=== PATIENT | male | born 1945 | race Caucasian/White ===

== ENCOUNTER 2016-12-18 13:27 | Inpatient (IN) | payer MEDICARE, MEDICAID ==
[~2016-12-18] VITALS: Ht 172.7 cm; Wt 77.1 kg
[2016-12-18 13:46] VITALS: BP 138/75
--- NOTE | 2016-12-18 14:47 | NUR ---
BROUGHT IN BY DAUGHTER DUE TO DIFFICULTY OF SWALLOWING AND SPEAKING X 1 1/2 WEEK AGO, PT WAS IN [facility] X3 DAYS,PT ABLE TO AMBULATE FROM LOBBY TO BED, PT AAO, WITH GARBLED, SLURRED SPEECH,ABLE TO SQUEEZE MY HANDS WITH HIS BOTH HANDS, DENIES N/V/D; SKIN IS PINK/WARM/DRY; AAOX4 WITH EVEN AND STEADY GAIT; LUNGS CLEAR BL; HR EVEN AND REGULAR; PT DENIES ANY FEVER, CP, OR COUGH AT THIS TIME; PATIENT STATES PAIN OF 0/10 AT THIS TIME; PATIENT POSITIONED FOR COMFORT; HOB ELEVATED; BEDRAILS UP X2; BED DOWN.
--- NOTE | 2016-12-18 14:47 | NUR ---
DR. ROBIN AT BEDSIDE
[2016-12-18] MEDS ORDERED: IPRATROPIUM 0.02% 0.5 MG/2.5 ML NEBU INH ONE (14:55)
[2016-12-18] MEDS ORDERED: ALBUTEROL 0.083% 2.5 MG/3 ML NEBU INH ONE (14:55)
--- NOTE | 2016-12-18 15:17 | NUR ---
XRAY AT BEDSIDE
--- NOTE | 2016-12-18 15:17 | NUR ---
RT AT BEDSIDE FOR HHN
[2016-12-18] MEDS ORDERED: cefTRIAXone 1,000 MG VIAL ONE (16:04)
[2016-12-18] MEDS ORDERED: POTASSIUM CHL 20 MEQ/NACL 0.9% 1,000 ML IV ONE (16:10)
--- NOTE | 2016-12-18 16:36 | NUR ---
PT AAO, VITAL SIGN STABLE IVF ONGOING WELL TOLERATED, STILL WITH GARBLED, SLURRED SPEECH, NO SOB NOTED
--- NOTE | 2016-12-18 17:26 | NUR ---
PER DAUGHTER SHE WILL BRING THE LIST OF MEDICATION TOMORROW, PT AAO, NO C/O PAIN,IVF ONGOING WELL TOLERATED.
--- NOTE | 2016-12-18 17:35 | NUR ---
REPORT GIVEN TO INDIO
--- NOTE | 2016-12-18 17:38 | NUR ---
TRANSFER TO [facility] VIA [facility], ASSIDTED BY RN/EMT WITH DAUGHTER, PT AAO,NO C/O PAIN, STILL WITH GARBLED SPEECH.
[2016-12-18 18:03] VITALS: BP 148/75
--- NOTE | 2016-12-18 18:03 | NUR ---
PT ON UNIT. NO S/S OF ACUTE DISTRESS. PT DENIES PAIN. IV SITE PATENT AND INTACT. PT ORIENTED TO ROOM. ON O2 2L NC. DAUGHTER AT BEDSIDE. ABRASIONS TO LEFT ELBOW AND LOWER LEG NOTED. RIGHT SIDED FACIAL DROOP NOTED. CALL LIGHT WITHIN REACH. SAFETY MEASURES ENSURED. WILL CONTINUE TO MONITOR.
[2016-12-18] MEDS ORDERED: DOCUSATE SODIUM 100 MG GELCAP PO PRN (18:45)
[2016-12-18] MEDS ORDERED: MORPHINE SULFATE 2 MG/ML SYR IVP PRN (18:45)
[2016-12-18] MEDS ORDERED: ACETAMINOPHEN 325 MG TAB PO PRN (18:45)
[2016-12-18] MEDS ORDERED: ONDANSETRON 4 MG/2 ML VIAL IVP PRN (18:45)
--- NOTE | 2016-12-18 19:11 | NUR ---
ENDORSED PLAN OF CARE TO NIGHT RN. PT REMAINS IN STABLE CONDITION
--- NOTE | 2016-12-18 19:15 | NUR ---
RECEIVED REPORT FROM DAY RN AT BEDSIDE, PATIENT IS AAOX4, PATIENT HAS NOTABLE DYSPHAGIA. PATIENT CAN TALK, BUT NOT EASILY UNDERSTANDABLE. PATIENT HAS RIGHT SIDE FACIAL DROOP NOTED. PATIENT STRENGTH TO PATIENTS EXTREMITIES GOOD WITH RIGHT ARM HAVING MILD WEAKNESS. PATIENT ABLE TO AMBULATE. PATIENT IS ON O2 @2L NC WITH NO SOB AT THIS TIME. PATIENT HAS IV TO RFA#20 PATENT AND INTACT WITH IVF INFUSING WELL. PATIENT HAS SCABBED ABRASIONS TO LEFT ELBOW AND LEFT LEG, INTACT. DISCUSSED PLAN OF CARE WITH PATIENT, PATIENT VERBALIZED UNDERSTANDING. CALL LIGHT WITHIN REACH. WILL CONTINUE TO MONITOR.
[2016-12-18] MEDS ORDERED: CLINDAMYCIN 300 MG in DEXTROSE 5% 50 ML IV SCH (20:00)
[2016-12-18] MEDS ORDERED: LEVOFLOXACIN 750 MG/D5W PREMIX 150 ML IV SCH (20:00)
[2016-12-18] MEDS ORDERED: MAG SULF 2000 MG/WATER PREMIX 50 ML IV ONE (20:40)
[2016-12-18] MEDS: SACCHAROMYCES 250 MG CAP PO SCH (20:44)
--- NOTE | 2016-12-18 21:08 | NUR ---
PATIENT SLEEPING COMFORTABLE IN BED, NO SOB OR SIGN OF DISTRESS, CALL LIGHT WITHIN REACH. WILL CONTINUE TO MONITOR.
--- NOTE | 2016-12-18 23:30 | NUR ---
PATIENT RESTING IN BED, NO SOB OR SIGN OF DISTRESS, CALL LIGHT WITHIN REACH. WILL CONTINUE TO MONITOR.
[2016-12-19] VITALS: BP 149/80
[2016-12-19] MEDS ORDERED: CLINDAMYCIN 600 MG/4 ML VIAL ONE ×2 (00:11→05:34)
[2016-12-19] MEDS: CLINDAMYCIN 300 MG in DEXTROSE 5% 50 ML IV SCH ×5 (00:13→23:11)
--- NOTE | 2016-12-19 00:30 | NUR ---
PATIENT SLEEPING, NO SOB OR SIGN OF DISTRESS, CALL LIGHT WITHIN REACH. WILL CONTINUE TO MONITOR.
[2016-12-19] MEDS ORDERED: MAG SULF 2000 MG/WATER PREMIX 50 ML IV ONE (01:36)
--- NOTE | 2016-12-19 02:30 | NUR ---
PATIENT SLEEPING, NO SIGN OF DISTRESS, CALL LIGHT WITHIN REACH. WILL CONTINUE TO MONITOR.
[2016-12-19 04:00] VITALS: BP 140/72
--- NOTE | 2016-12-19 04:59 | NUR ---
VITAL SIGNS STABLE, PATIENT RESTING IN BED, PATIENT STATES HE IS OKAY AND DOESNT NEED ANYTHING, CALL LIGHT WITHIN REACH, WILL CONTINUE TO MONITOR.
--- NOTE | 2016-12-19 06:50 | NUR ---
CHECKED PATIENT'S BLOOD SUGAR, PATIENT HAS HISTORY OF DM AND STATED HE CHECKS IT AT HOME. BS WAS 139. NO INSULIN NEEDED, CALL LIGHT WITHIN REACH, WILL CONTINUE TO MONITOR.
--- NOTE | 2016-12-19 07:27 | NUR ---
PATIENT HAS BEEN SCREENED AND CATEGORIZED HIGH NUTRITION RISK. PATIENT WILL BE SEEN WITHIN 1-2 DAYS OF ADMISSION. 12/19/16-12/20/16 ABBY GONZÁLES MS, RDN
--- NOTE | 2016-12-19 07:31 | NUR ---
ENDORSED PATIENT TO DAY RN AT BEDSIDE, PATIENT IN STABLE CONDITION.
--- NOTE | 2016-12-19 07:32 | NUR ---
RECEIVED REPORT FROM KATERINE MINA. PT IS AAOX4. PT ON 2L NC, O2 SAT AT 94%. IV TO RIGHT FA #20, PATENT AND INTACT. SCAB TO LEFT ELBOW AND ANKLE NOTED. NO N/V OR PAIN INDICATED. ALL SAFETY PRECAUTIONS IN PLACE, SIDE RAILSX2, BED IN LOW POSITION, AND CALL LIGHT WITHIN REACH. WILL CONTINUE TO MONITOR.
[2016-12-19 08:00] VITALS: BP 144/76
[2016-12-19] MEDS: SACCHAROMYCES 250 MG CAP PO SCH ×2 (08:50→21:00)
--- NOTE | 2016-12-19 08:50 | NUR ---
HELD PT MEDS. PT DX: DYSPHAGIA. SPEECH THERAPIST CONSULTATION NOT IN TO SEE PT AT THIS TIME.
--- NOTE | 2016-12-19 09:45 | NUR ---
IV TO RIGHT FA #20 DISLODGED WITH CANNULA INTACT. NEW IV STARTED TO RIGHT WRIST #22, PATENT AND INTACT.
--- NOTE | 2016-12-19 09:51 | NUR ---
TALKED TO DR Swartz NOTIFIED , PT IS DIABETIC WITH NO ACCUCHECKS, AND IS NPO WITHOUT IV FLUIDS. MD TO FOLLOW UP.
--- NOTE | 2016-12-19 09:56 | NUR ---
TALKED TO ANNABELLE CHARGE NURSE. SPEECH THERAPIST TO COME IN TODAY. Addendum: 12/19/16 at 1546 by Whitney Jimenez RN CORRECTION: SPEECH THERAPIST POSSIBLY TO COME IN TODAY.
[2016-12-19] MEDS: DEXT 5% /NACL 0.9% 1,000 ML IV SCH ×2 (11:07→20:45)
--- NOTE | 2016-12-19 11:11 | NUR ---
PT TOLERATED IV FLUIDS WELL.
[2016-12-19 12:00] VITALS: BP 150/81
--- NOTE | 2016-12-19 12:38 | NUR ---
PT TOLERATED MEDS WELL. WILL CONTINUE TO MONITOR.
--- NOTE | 2016-12-19 14:00 | NUR ---
PT SLEEPING WITH NO DISTRESS NOTED AT THIS TIME.
[2016-12-19] MEDS: BLOOD GLUCOSE MONITORING 1 DEV DEV FS SCH ×2 (15:42→20:43)
--- NOTE | 2016-12-19 15:45 | NUR ---
BLOOD GLUCOSE 199, WILL ADMINISTER INSULIN ORDERED.
[2016-12-19 16:00] VITALS: BP 154/76
[2016-12-19] MEDS ORDERED: METFORMIN HCL850 MG PO (16:37)
[2016-12-19] MEDS ORDERED: METOPROLOL TART25 MG PO (16:37)
[2016-12-19] MEDS ORDERED: LOSARTAN POTASS50 MG PO (16:37)
[2016-12-19] MEDS ORDERED: GLIPIZIDE5 M2 PO (16:37)
[2016-12-19] MEDS ORDERED: ATORVASTATIN CA10 MG PO (16:37)
[2016-12-19] MEDS ORDERED: JANUVIA100 MG PO (16:37)
--- NOTE | 2016-12-19 16:40 | NUR ---
HOME MEDICATIONS ADDED TO RECONCILE MEDS, DR Mckeon MADE AWARE.
[2016-12-19] MEDS: INSULIN ASPART SLIDING SCALE 100 UNITS/ML VIAL SUBQ PRN ×2 (16:50→20:42)
--- NOTE | 2016-12-19 16:51 | NUR ---
BLOOD GLUCOSE 199, ADMINISTERED 2 UNITS OF INSULIN ORDERED.
--- NOTE | 2016-12-19 17:08 | NUR ---
PT TOLERATED MEDS WELL. WILL CONTINUE TO MONITOR.
--- NOTE | 2016-12-19 18:06 | NUR ---
PT SLEEPING, NO DISTRESS NOTED AT THIS TIME.
--- NOTE | 2016-12-19 19:20 | NUR ---
RECEIVED REPORT FROM KATERINE Ramos AT BEDSIDE. INITIAL ASSESSMENT COMPLETED. PT AAOX4. PT HAS IV TO RIGHT WRIST G 22; ASYMPTOMATIC, PATENT AND INTACT. PT HAS 02 2L NC. PT HAS SCDS ON. PT HAS SOME DRY SCABS ON LEFT ANKLE AND LEFT ELBOW. ORIENTED PT TO ROOM AND SURROUNDINGS AND USE OF CALL LIGHT. EXPLAINED PLAN OF CARE TO PT AND HE VERBALIZES UNDERSTANDING. PT AWARE THAT HE IS NPO UNTIL SWALLOWING EVALUATION IS DONE. WILL CONTINUE TO MONITOR PT. Addendum: 12/19/16 at 2228 by Lorri Magaña RN PT MUMBLES WHEN HE SPEAKS DUE TO THE STROKE HE HAD A WEEK AGO.
--- NOTE | 2016-12-19 19:22 | NUR ---
ENDORSED CARE TO KATERINE FRANKS. PT IN STABLE CONDITION.
[2016-12-19 20:00] VITALS: BP 145/82
[2016-12-19] MEDS: LEVOFLOXACIN 750 MG/D5W PREMIX 150 ML IV SCH (20:16)
--- NOTE | 2016-12-19 20:40 | NUR ---
2000 ANTIBIOTIC INFUSING NOW. CALL LIGHT WITHIN REACH.
[2016-12-19] MEDS ORDERED: LOSARTAN 25 MG TAB PO SCH (21:00)
[2016-12-19] MEDS: glipiZIDE 5 MG TAB PO SCH (21:00)
[2016-12-19] MEDS: METOPROLOL 25 MG TAB PO SCH (21:00)
--- NOTE | 2016-12-19 21:42 | NUR ---
HELD 2100 PO MEDS DUE TO PT BEEN NPO FOR SWALLOWING EVALUATION. WILL CONTINUE TO MONITOR PT.
--- NOTE | 2016-12-19 23:13 | NUR ---
0000 CLEOCIN INFUSING AT THIS TIME. CALL LIGHT WITHIN REACH.
[2016-12-20] VITALS: BP 141/80
[2016-12-20] MEDS: DEXT 5% /NACL 0.9% 1,000 ML IV SCH ×2 (01:30→11:13)
--- NOTE | 2016-12-20 02:11 | NUR ---
PT AWAKE AT THIS TIME. I ASKED HIM IF HE WAS ON PAIN OR NEEDED ANYTHING. PT STATED THAT HE WAS OK BY WRITING ON PAPER. WILL CONTINUE TO MONITOR PT.
[2016-12-20 04:00] VITALS: BP 148/82
--- NOTE | 2016-12-20 04:35 | NUR ---
PT SLEEPING, NO SIGNS OF DISTRESS NOTED. CALL LIGHT WITHIN REACH, WILL CONTINUE TO MONITOR PT.
[2016-12-20] MEDS: CLINDAMYCIN 300 MG in DEXTROSE 5% 50 ML IV SCH ×4 (05:24→23:14)
--- NOTE | 2016-12-20 05:27 | NUR ---
PT ACCIDENTALLY PULLED OUT IV, TIP INTACT. NEW IV STARTED ON RIGHT FOREARM G 20; ASYMPTOMATIC, PATENT AND INTACT. PT TOLERATED IT WELL.
--- NOTE | 2016-12-20 05:29 | NUR ---
0600 CLEOCIN INFUSING NOW. PT STABLE CALL LIGHT WITHIN REACH.
[2016-12-20] MEDS: INSULIN ASPART SLIDING SCALE 100 UNITS/ML VIAL SUBQ PRN ×4 (05:48→20:28)
[2016-12-20] MEDS: BLOOD GLUCOSE MONITORING 1 DEV DEV FS SCH ×4 (06:32→20:28)
--- NOTE | 2016-12-20 07:05 | NUR ---
ENDORSED PT IN STABLE CONDITION TO KATERINE Ramos FOR CONTINUITY OF CARE.
--- NOTE | 2016-12-20 07:06 | NUR ---
RECEIVED REPORT FROM KATERINE FRANKS.PT IS AAOX4. PT ON 2L NC O2 SAT 97%. IV TO RIGHT FA #20, PATENT AND INTACT. LEFT ELBOW AND LEFT ANKLE ABRASION. NO N/V OR PAIN INDICATED. ALL SAFETY PRECAUTIONS IN PLACE, SIDE RAILSX2, AND CALL LIGHT WITHIN REACH. WILL CONTINUE TO MONITOR.
[2016-12-20 08:00] VITALS: BP 156/86
[2016-12-20] MEDS: SACCHAROMYCES 250 MG CAP PO SCH ×2 (08:51→20:15)
[2016-12-20] MEDS: METOPROLOL 25 MG TAB PO SCH ×2 (08:51→20:15)
[2016-12-20] MEDS: metFORMIN 850 MG TAB PO SCH ×3 (08:51→16:27)
[2016-12-20] MEDS: glipiZIDE 5 MG TAB PO SCH ×2 (08:51→20:14)
[2016-12-20] MEDS: LOSARTAN 50 MG TAB PO SCH (08:51)
--- NOTE | 2016-12-20 08:52 | NUR ---
HELD PO MEDS. SPEECH THERAPIST TO POSSIBLY SEE PT TODAY. PER MD ORDER PT TO REMAIN NPO UNTIL SWALLOW EVALUATIONS IN COMPLETE.
--- NOTE | 2016-12-20 10:37 | NUR ---
PT SLEEPING WITH NO DISTRESS NOTED.
--- NOTE | 2016-12-20 10:48 | NUR ---
SPEECH THERAPIST TO COME TODAY BEFORE 1300.
--- NOTE | 2016-12-20 11:18 | NUR ---
PT TOLERATED MEDS WELL. NOTIFIED DR Mckeon PT ELEVATED BP 167/87, HR 85, LOW POTASSIUM 3.3, AND MAGNESIUM AT 1.7. MD TO FOLLOW UP WITH ORDERS.
[2016-12-20] MEDS ORDERED: hydrALAZINE 20 MG/ML VIAL IVP PRN (11:25)
[2016-12-20 12:00] VITALS: BP 167/86
[2016-12-20] MEDS ORDERED: POTASSIUM CHLORIDE 40 MEQ, LIDOCAINE 1% 25 MG in NACL 0.9% 250 ML IV SCH (12:00)
--- NOTE | 2016-12-20 12:07 | NUR ---
PT TOLERATED MEDS WELL. BLOOD GLUCOSE 203, ADMINISTERED 4 UNITS ORDERED.
--- NOTE | 2016-12-20 12:24 | NUR ---
ADMINISTERED HYDRALAZINE IVP ORDERED. BP 171/88, HR 85. WILL CONTINUE TO MONITOR.
--- NOTE | 2016-12-20 13:50 | NUR ---
SPEECH THERAPIST IN TO SEE PT. OK FOR PT TO HAVE PUREED FOODS WITH NO LIQUIDS. CLOSE SUPERVISION REQUIRED, RD AND SPEECH THERAPIST TO FOLLOW UP.
--- NOTE | 2016-12-20 14:28 | NUR ---
* ST NOTE * Bedside Dysphagia and Oral Mechanism exams completed at pt's bedside with pt's nurse present. Pt tolerating 8/8 alternating PO trials of puree apple sauce 3-5 CCs at a time via a teaspoon w/out s/s of aspiration. Pt however exhibiting consistent throat clearing immediately after PO intake of honey-thickened apple juice 3-5 CCs at a time via a teaspoon. Pt also exhibiting delayed residual cough after PO intake of honey-thickened apple juice 3-5 CCs at a time via a teaspoon as well. Pt education completed regarding clinician's recommendation for an RD consult for alternative means of nutrition secondary to pt currently being deemed unsafe for PO intake of liquids at this time, with pt unwilling to wait for RD consult secondary to pt preferring to discharge home tonight. Pt education completed regarding risks of dehydration and aspiration PNA if pt was to D/C today without ST follow up treatment as well as without RD consultation. Clinician also electing to recommend video fluoroscopic swallow study to provide more comprehensive assessment of pt's swallow function, but pt refusing to remain at hospital overnight to be transferred to another acute care hospital for swallow study, despite maximal cueing and education provided by clinician. Lastly, pt education completed regarding potential placement of NG tube to assure pt receives proper nutrition & hydration with home health ST follow up or outpatient ST follow up, with pt initially refusing tube feeding at this time, but later inquiring as to what POC would be if NGT was placed and what pt's prognosis would be. Pt and caregiver/nursing education completed regarding pt's multiple options and multiple subsequent POCs respective of what options pt chooses as well as pending MD approval, with pt and caregiver/nursing agreeable with and verbalizing understanding of clinician's recommendations. Pt and caregiver/nurse education completed regarding results of evaluation; benefits of abiding by recommended PO diet consistency and aspiration precuations; risks of leaving AMA despite clinician's recommendations for RD consult as well as ST follow up treatment; and prognosis for improvement; with pt requiring additional education and encouragement to comply with clinician's recommendations secondary to pt adamant regarding wanting to go home today. Caregiver/nurse agreeable with and verbalizing understanding of clinician's recommendations. Caregiver/nurse aware of pt requiring more education to comply with clinician's recommendations. Recommend: - PO diet consistency of Puree textures only - if pt exhibits s/s of aspiration during PO intake of puree textures, stop PO intake and attempt at a later time - Suction PRN - NO liquids PO - Close supervision during PO intake to assure aspiration precautions are in place secondary to pt being at high risk for aspiration - RD consult for alternative means of nutrition such as NG tube secondary to pt being at high risk for aspiration with PO intake ST to follow up x1-2 in next 1-2 days. G8996 CL G8997 CK NOMS Level 4 Time In/Out 13:10 - 13:55
--- NOTE | 2016-12-20 14:34 | NUR ---
PT RESTING WITH NO DISTRESS NOTED.
--- NOTE | 2016-12-20 14:35 | NUR ---
TALKED TO DR Linda MD AWARE OF PT'S SWALLOW EVAL RESULTS. MD TO PLACE ORDERS. OK WITH MD IF MEDICATIONS ARE CRUSHED AND MIXED WITH APPLE SAUCE TO AVOID ASPIRATION.
[2016-12-20 16:00] VITALS: BP 144/71
--- NOTE | 2016-12-20 16:34 | NUR ---
PT TOLERATED MEDS WELL. ADMINISTERED METFORMIN WITH APPLESAUCE, PT TOLERATED WELL. WILL CONTINUE TO MONITOR.
[2016-12-20] MEDS ORDERED: MAG SULF 2000 MG/WATER PREMIX 50 ML IV SCH (17:00)
--- NOTE | 2016-12-20 17:16 | NUR ---
BLOOD GLUCOSE 160, ADMINISTERED 2 UNITS OF INSULIN ORDERED.
--- NOTE | 2016-12-20 17:42 | NUR ---
PT EATING DINNER. PT TOLERATING WELL. WILL CONTINUE TO MONITOR.
--- NOTE | 2016-12-20 18:33 | NUR ---
PT TOLERATED MEDS WELL. WILL CONTINUE TO MONITOR.
--- NOTE | 2016-12-20 19:04 | NUR ---
ENDORSED CARE TO KATERINE FRANKS. PT IN STABLE CONDITION.
--- NOTE | 2016-12-20 19:15 | NUR ---
RECEIVED REPORT FROM KATERINE Ramos AT BEDSIDE. INITIAL ASSESSMENT COMPLETED. PT AAOX4. PT HAS IV TO RIGHT FOREARM G 22; ASYMPTOMATIC, PATENT AND INTACT. PT HAS 02 2L NC. PT HAS SCDS ON. PT HAS SOME DRY SCABS ON LEFT ANKLE AND LEFT ELBOW. ORIENTED PT TO ROOM AND SURROUNDINGS AND USE OF CALL LIGHT. EXPLAINED PLAN OF CARE TO PT AND HE VERBALIZES UNDERSTANDING. PT IS ON A PUREE DIET. PT HAS RIGHT DROOPING ON RIGHT SIDE OF FACE DUE TO STROKE A WEEK AGO. SAFETY MEASURES IN PLACE, WILL CONTINUE TO MONITOR PT.
[2016-12-20 20:00] VITALS: BP 115/88
[2016-12-20] MEDS: LEVOFLOXACIN 750 MG/D5W PREMIX 150 ML IV SCH (20:14)
--- NOTE | 2016-12-20 20:24 | NUR ---
PT TOLERATED 2100 MEDS WELL. PO MEDS CRASHED AND GIVEN WITH APPLE SAUCE. VS WITHIN NORMAL RANGE. WILL CONTINUE TO MONITOR PT.
--- NOTE | 2016-12-20 22:45 | NUR ---
PT STABLE, DENIES PAIN OR DISCOMFORT. PT HAS SCDS ON. CALL LIGHT WITHIN REACH, WILL CONTINUE TO MONITOR PT.
--- NOTE | 2016-12-20 23:19 | NUR ---
0000 CLEOCIN INFUSING NOW. PT STABLE, CALL LIGHT WITHIN REACH.
[2016-12-21] VITALS: BP 143/81
--- NOTE | 2016-12-21 01:32 | NUR ---
PT STABLE, VS STABLE. PT LIPS ARE DRY, ORAL CARE GIVEN. PT STATES THAT HE HAS TROUBLE FALLING ASLEEP. ASKED PT IF HE WANTED ME TO NOTIFY MD BUT PT SAID "NO, IT'S OK". CALL LIGHT WITHIN REACH.
[2016-12-21] MEDS: DEXT 5% /NACL 0.9% 1,000 ML IV SCH (02:45)
--- NOTE | 2016-12-21 03:38 | NUR ---
PT ACCIDENTLY PULLED OUT HIS IV; THERE WAS BLOOD ON THE SHEETS AND ON THE FLOOR. CHANGED THE BED LINEN, PT'S GOWN AND CLEANED BLOOD ON THE FLOOR. PT DENIES PAIN OR DISCOMFORT. WILL CONTINUE TO MONITOR PT.
[2016-12-21 04:00] VITALS: BP 123/85
--- NOTE | 2016-12-21 05:20 | NUR ---
IV PUMP ALARMING, CHECKED ON PT FLUSHED IV. IV FLUIDS INFUSING WELL. PT STABLE, CALL LIGHT WITHIN REACH.
[2016-12-21] MEDS: CLINDAMYCIN 300 MG in DEXTROSE 5% 50 ML IV SCH ×3 (05:31→17:08)
--- NOTE | 2016-12-21 07:10 | NUR ---
ENDORSED PT IN STABLE CONDITION TO KATERINE VILA FOR CONTINUITY OF CARE.
--- NOTE | 2016-12-21 07:11 | NUR ---
RECEIVED REPORT FROM THE EXCEPTIONAL CHILDREN TEACHER ASSISTANT NURSE TINY AT BEDSIDE FOR CONTINUITY OF CARE. PATIENT IS AWAKE, ALERT, AND ORIENTEDX4. NO SIGN OF SOB OR RESPIRATORY DISTRESS NOTED AT THIS TIME, INITIAL ASSESSMENT DONE, PATIENT HAS SCABS TO LEFT ELBOW AND MULTIPLE SCABS AND DRY HEALED WOUNDS TO BLE. PATIENT DENIED ANY PAIN OR DISCOMFORT. NOTED PATIENT HAS SLURRING VOICE DUE TO HX OF STROKE. PATIENT ALSO HAS IV TO RIGHT FA 22G, ASYMPTOMATIC, PATENT AND INTACT. VITALS TAKEN AND WITHIN THE NORMAL LIMIT. PLAN OF CARE AND MEDICATION REGIMENTS DISCUSSED, PATIENT VERBALIZED UNDERSTANDING. SAFETY MEASURED CHECKED AND WILL CONTINUE TO MONITOR. CALL LIGHT WITHIN REACH.
[2016-12-21 08:00] VITALS: BP 159/93
[2016-12-21] MEDS: BLOOD GLUCOSE MONITORING 1 DEV DEV FS SCH ×4 (08:04→21:31)
[2016-12-21] MEDS: metFORMIN 850 MG TAB PO SCH ×3 (08:10→16:58)
[2016-12-21] MEDS: LOSARTAN 50 MG TAB PO SCH (08:11)
[2016-12-21] MEDS: SACCHAROMYCES 250 MG CAP PO SCH ×2 (08:11→21:18)
[2016-12-21] MEDS: METOPROLOL 25 MG TAB PO SCH ×2 (08:11→21:18)
[2016-12-21] MEDS: glipiZIDE 5 MG TAB PO SCH ×2 (08:11→21:18)
--- NOTE | 2016-12-21 08:14 | NUR ---
MORNING DUE MEDICATIONS CRUSHED IN PUDDING GIVEN, PATIENT TOLERATED AND SWALLOW WELL. NO SIGN OF DISTRESS NOTED. PATIENT ANY PAIN OR DISCOMFORT. ALL NEEDS ARE MET. PATIENT REMAINED CALMED AND WATCHING TV. WILL CONTINUE TO MONITOR.
[2016-12-21] MEDS: NACL 0.9% 1,000 ML IV SCH (08:30)
[2016-12-21] MEDS ORDERED: ECOTRIN 81 MG TABEC PO SCH (09:00)
[2016-12-21] MEDS: ATORVASTATIN 20 MG TAB PO SCH (09:34)
--- NOTE | 2016-12-21 10:57 | NUR ---
PATIENT REMAINED CALM AWAKE AND RESTING WELL IN BED WATCHING TV. NO SIGN OF SOB OR RESPIRATORY DISTRESS NOTED AT THIS TIME. DENIED ANY PAIN OR DISCOMFORT. ALL NEEDS MET. CALL LIGHT WITHIN REACH. WILL CONTINUE TO MONITOR.
[2016-12-21 11:28] VITALS: BP 155/72
[2016-12-21] MEDS: INSULIN ASPART SLIDING SCALE 100 UNITS/ML VIAL SUBQ PRN ×2 (12:02→21:34)
--- NOTE | 2016-12-21 12:08 | NUR ---
DUE MEDICATION PO CRUSHED IN APPLE SAUCE AND INSULIN 4UNITS GIVEN FOR BS 205. PATIENT TOLERATED WELL. NO SIGN OF DISTRESS NOTED. PATIENT RESTING WELL IN BED. DENIED ANY DISCOMFORT. CALL LIGHT WITHIN REACH. WILL CONTINUE TO MONITOR.
[2016-12-21] MEDS ORDERED: ALBUTEROL SULFATE/IPRATROPIU 3 ML SOL IH PRN (13:20)
--- NOTE | 2016-12-21 14:00 | NUR ---
12/21/16 RD INITIAL ASSESSMENT COMPLETED PLEASE REFER TO NUTRITION ASSESSMENT UNDER CARE ACTIVITY FOR ESTIMATED NUTRITIONAL NEEDS. RD RECOMMENDATIONS: 1. CONTINUE PUREE DIET WITH NO LIQUIDS TOLERATED PER MD 2. RECOMMEND ADDING CARDIAC TO CURRENT DIET D/T PT PMH OF CVA, HTN, HYPERLIPIDEMIA 3. RD WILL F/U 2-3 DAYS; HIGH RISK. ALVINO CHAMBERLAIN RD
--- NOTE | 2016-12-21 14:09 | NUR ---
RESEARCH ELECTRICIAN note (dysphagia therapy provided) [id number] S: Pt was provided with dysphagia therapy following clearance by KATERINE (Magdiel). Pt was lying in bed sleeping upon RESEARCH ELECTRICIAN's entrance to pt's room, but pt awakened easily with quiet verbal cues and knock on pt's room door. Pt sat himself up on edge of bed (with suggestion by RESEARCH ELECTRICIAN) for therapy session and then returned himself back into bed at end of session. O/A: RESEARCH ELECTRICIAN provided education to pt regarding purpose of dysphagia therapy session. Pt verbalized understanding and willingness to participate. Pt self-fed all PO trials of thin liquids by spoon, nectar-thick liquids by spoon, and honey-thick liquids by spoon during session. Pt demonstrated wet/gurgly vocal quality and prolonged coughing with all PO trials at this time, despite small/slow PO intakes and despite chin down posture. Pt required additional cues to cough hard to fully clear vocal quality back to baseline. RESEARCH ELECTRICIAN provided pt with education regarding risks for aspiration/PNA with liquid PO intakes and importance of strict compliance with recommendations. Pt verbalized understanding and agreement. RESEARCH ELECTRICIAN provided pt with education regarding importance of following up with outpatient RESEARCH ELECTRICIAN intervention upon discharge to assist pt in improving his swallowing safety. Pt verbalized understanding and agreement. P: Pt to be discharged home today. Discharge pt from RESEARCH ELECTRICIAN intervention here at [facility]. Pt to follow up with outpatient RESEARCH ELECTRICIAN intervention for dysphagia upon discharge. Pt verbalized understanding and agreement with recommendations at this time. PVE: RESEARCH ELECTRICIAN d/w KATERINE (Magdiel) following dysphagia therapy session.
--- NOTE | 2016-12-21 14:25 | NUR ---
EMERGENCY PLANNING AND RESPONSE MANAGER Discharge Summary Report S: Pt was provided with bedside swallow evaluation on 12/20/2016. Pt was provided with dysphagia therapy on 12/21/2016. O/A: Per bedside swallow evaluation: pt was recommended for pureed textures, no liquids, dysphagia therapy 1-2 x for 1-2 days. Per dysphagia therapy: pt to continue pureed textures, no liquids, and pt to f/u with outpatient EMERGENCY PLANNING AND RESPONSE MANAGER intervention upon discharge home from [facility]. Pt was provided with education regarding risks for aspiration/PNA and importance of following up with outpatient EMERGENCY PLANNING AND RESPONSE MANAGER intervention. Pt verbalized agreement and understanding. P: Discharge pt from EMERGENCY PLANNING AND RESPONSE MANAGER intervention here at [facility]. Pt to f/u with outpatient EMERGENCY PLANNING AND RESPONSE MANAGER intervention upon discharge home from [facility]. EMERGENCY PLANNING AND RESPONSE MANAGER d/w RN (Magdiel). [id number] EMMA NOMS level 3.
--- NOTE | 2016-12-21 14:54 | NUR ---
CM NOTE INITIAL REVIEW FAXED TO [employer] (FAX# [phone], C: [phone]) AND [facility] (FAX# [phone], C: [phone], OPT. 1)
--- NOTE | 2016-12-21 15:58 | NUR ---
CM NOTE BETTY W/ TANGELA HEIN FOR [facility] RE. [place] FOR SNF OR [facility] FOR SPEECH THERAPY.
[2016-12-21 16:00] VITALS: BP 149/85
--- NOTE | 2016-12-21 19:15 | NUR ---
ENDORSED PATIENT CURRENT PLAN OF CARE TO NIGHT NURSE RAE GARCIAS, PATIENT RESTING WELL IN BED WITH NO SIGN OF DISTRESS NOTED.
--- NOTE | 2016-12-21 19:16 | NUR ---
RECEIVED REPORT FROM DAYSHIFT RN FOR CONTINUITY OF CARE. PATIENT IS A&OX4, EXPLAINED PLAN OF CARE TO PATIENT. SHIFT ASSESSMENT DONE, VS TAKEN, STABLE AT THIS TIME. PATIENT HAS NO S/S OF RESPIRATORY DISTRESS NOTED ON ROOM AIR, O2 SAT 98%. PATIENT DENIES PAIN. IV TO RT FA 22 GAUGE PATENT AND INFUSING FLUIDS WELL. PT HAS OLD SCABS TO BLE. SAFETY/FALL/ ASPIRATION PRECAUTIONS ENFORCED. CALL LIGHT WITHIN REACH. WILL CONTINUE TO MONITOR.
[2016-12-21 20:00] VITALS: BP 132/75
[2016-12-21] MEDS: LEVOFLOXACIN 750 MG/D5W PREMIX 150 ML IV SCH (21:18)
--- NOTE | 2016-12-21 21:34 | NUR ---
DUE MEDICATIONS CRUSHED AND GIVEN IN APPLE SAUCE, TOLERATED WELL. BLOOD SUGAR 170, INSULIN ADMINISTERED PER MD ORDER. PATIENT AMBULATED TO RESTROOM, VOIDED. CALL LIGHT WITHIN REACH.
--- NOTE | 2016-12-21 23:02 | NUR ---
PT IS SLEEPING. NO S/S OF RESPIRATORY DISTRESS NOTED. CALL LIGHT IN REACH.
[2016-12-22] VITALS: BP 132/59
[2016-12-22] MEDS: CLINDAMYCIN 300 MG in DEXTROSE 5% 50 ML IV SCH ×3 (00:52→11:49)
--- NOTE | 2016-12-22 00:52 | NUR ---
VS TAKEN, STABLE. DUE ANTIBIOTICS ADMINISTERED, TOLERATED WELL. PATIENT IS NOW SLEEPING. CALL LIGHT WITHIN REACH.
--- NOTE | 2016-12-22 02:54 | NUR ---
PT IS SLEEPING. NO S/S OF DISTRESS OR DISCOMFORT NOTED.
[2016-12-22 04:00] VITALS: BP 118/66
--- NOTE | 2016-12-22 04:36 | NUR ---
VS TAKEN, STABLE. PT AWAKE, PROVIDED ORAL CARE AND RAISED HOB FOR ASPIRATION PRECAUTIONS. CALL LIGHT WITHIN REACH.
--- NOTE | 2016-12-22 05:56 | NUR ---
BLOOD SUGAR 79, PROVIDED PATIENT WITH APPLESAUCE, TOLERATED WELL.
[2016-12-22] MEDS: BLOOD GLUCOSE MONITORING 1 DEV DEV FS SCH ×3 (06:08→16:41)
--- NOTE | 2016-12-22 07:33 | NUR ---
ENDORSED PATIENT TO DAYSHIFT RN FOR CONTINUITY OF CARE, PATIENT IS STABLE.
--- NOTE | 2016-12-22 07:33 | NUR ---
RECIVED REPORT FROM NIGHT NURSE, PT IS AAOX4, ON ROOM AIR, IV TO RIGHT FA 22G WITH NS AT 40ML/HR INFUSING WELL, BLE SCABS, L ELBOW SCAB, OTHERWISE SKIN INTACT, SCD'S NOTED. PT STATES NO PAIN, NO S/S OF DISTRESS OR DISCOMFORT NOTED. INITIAL ASSESSMENT COMPLETED, REVIEWED PLAN OF CARE WITH PT, PT VERBALIZED UNDERSTANDING, ORIENTED PT TO ROOM AND ENVIRONMENT. CALL LIGHT WITHIN REACH. WILL CONTINUE TO MONITOR.
[2016-12-22 08:00] VITALS: BP 150/85
[2016-12-22] MEDS: NACL 0.9% 1,000 ML IV SCH (08:30)
[2016-12-22] MEDS: SACCHAROMYCES 250 MG CAP PO SCH (09:00)
[2016-12-22] MEDS ORDERED: ASPIRIN 81 MG TAB.CHEW PO SCH (09:41)
[2016-12-22] MEDS: glipiZIDE 5 MG TAB PO SCH (09:48)
[2016-12-22] MEDS: metFORMIN 850 MG TAB PO SCH ×3 (09:48→17:00)
[2016-12-22] MEDS: LOSARTAN 50 MG TAB PO SCH (09:48)
[2016-12-22] MEDS: METOPROLOL 25 MG TAB PO SCH (09:49)
--- NOTE | 2016-12-22 09:50 | NUR ---
DUE MEDICATIONS GIVEN, CRUSHED MEDS AND GIVEN WITH APPLE SAUCE. PT TOLERATED WELL, WILL CONTINUE TO MONITOR.
[2016-12-22] MEDS: ATORVASTATIN 20 MG TAB PO SCH (09:59)
--- NOTE | 2016-12-22 11:55 | NUR ---
CHECKED IN ON PT, PT CURRENTLY SLEEPING, NO S/S OF RESPIRATORY DISTRESS NOR DISCOMFORT NOTED. CALL LIGHT WITHIN REACH.
[2016-12-22 12:00] VITALS: BP 143/79
--- NOTE | 2016-12-22 12:03 | NUR ---
SPOKE WITH ANGEL LUIS FROM [facility] I INFORMED HER THAT THIS PATIENT NEEDED OUT PATIENT SPEECH THERAPY. I FAXED HER CONCURRENT REVIEW AND ORDER. [phone] PHONE ANGEL LUIS [phone] OP1 ANGEL LUIS SAID THE REVIEW JUST GOES TO HER AND NOT TO [facility].
[2016-12-22] MEDS: INSULIN ASPART SLIDING SCALE 100 UNITS/ML VIAL SUBQ PRN (13:24)
--- NOTE | 2016-12-22 13:24 | NUR ---
DUE MEDICATION GIVE. PO MEDICATION CRUSHED GIVEN WITH APPLE SAUCE. PT CURRENTLY WATCHING TV. CALL LIGHT WITHIN REACH. WILL CONTINUE TO MONITOR.
--- NOTE | 2016-12-22 13:50 | NUR ---
SS NOTE: I SPOKE WITH SPEECH THERAPIST, ZOFIA ANDREWS AND SHE STATED THAT PT HAD AN APPT WITH HER ON 12/18/16 AT 10AM BUT PT DID NOT COME TO THE APPT AND SHE WAS UNABLE TO REACH PT'S FAMILY. SHE ALSO STATED THAT SHE HAS AUTHORIZATION FOR AN OFFICE CONSULT AND REQUESTED THAT PT'S FAMILY CALLS HER FOR AN APPT ([address] [place] [address] ). SHE REPORTED THAT SHE CAN REQUEST FOR ADDITIONAL AUTHORIZATIONS FOR SPEECH THERAPY IF PT IS ABLE TO CONTINUE HIS APPTS WITH HER. Addendum: 12/22/16 at 1634 by Palma VALERO I SPOKE WITH PT BEDSIDE AND MADE HIM AWARE OF THE ABOVE INFORMATION. I ALSO PROVIDED HIM WITH ZOFIA'S INFORMATION SO THAT HIS DTR, ZEINAB CAN CALL HER TO SCHEDULE AN APPT, HE GESTURED UNDERSTANDING. Addendum: 12/22/16 at 1635 by Palma VALERO PT ALSO STATED THAT HE WAS NOT AWARE THAT HE HAD AN APPT WITH ZOFIA ON 12/18/15.
[2016-12-22 16:00] VITALS: BP 137/70
--- NOTE | 2016-12-22 16:12 | NUR ---
PT CURRENTLY AWAKE. NO S/S OF DISTRESS OR DISCOMFORT NOTED. CALL LIGHT WITHIN RAECH.
[2016-12-22] MEDS ORDERED: LEVAQUIN750 MG PO (16:30)
[2016-12-22] MEDS ORDERED: ASPIRIN ADULT L81 M1 PO (16:30)
[2016-12-22] MEDS ORDERED: FLORASTOR 33 MG1 CAP PO (16:30)
[2016-12-22] MEDS ORDERED: CLEOCIN HCL300 MG PO (16:30)
--- NOTE | 2016-12-22 16:32 | NUR ---
LATE ENTRY. HAD RECEIVED A CALL BACK EARLIER FROM ANGEL LUIS FROM [facility] AND SHE SAID THAT THE SPEECH THERAPY HAD BEEN APPROVED WHEN HE WAS DISCHARGED FROM [facility] ON 12/11/16. HE WAS TO SEE THE SPEECH THERAPIST, HERNANDEZ ANDREWS, . I CALLED HERNANDEZ AND LEFT A MESSAGE FOR HER TO CALL ME BACK ABOUT THE THERAPY. I CALLED ANGEL LUIS EARLIER AND ASKED IF HE COULD SEE A THERAPIST CLOSER TO THEM, SINCE HERNANDEZ ANDREWS WAS IN [facility] AND THEY LIVE IN [place]. SHE SAID TO TRY THE CASE MANAGEMENT REFERRAL AT [phone]. I CALLED THAT NUMBER AND SPOKE WITH USHA. SHE SAID I NEEDED TO CALL ANGEL LUIS BACK. I CALLED AND LEFT 2 MESSAGES FOR ANGEL LUIS FROM [facility]. NO CALL BACK.
--- NOTE | 2016-12-22 16:48 | NUR ---
RECEIVED A CALL FROM ANGEL LUIS FROM [facility]. SHE SAID THEY WILL BE GIVING AUTH TO [facility] OUT PATIENT SPEECH THERAPY. SHE SAID THEIR APPOINTMENT PERSON FROM [facility] WILL SET UP THE TIME FOR THE APPOINTMENT AND THE PATIENT WILL BE CALLED. I GAVE ANGEL LUIS THE PHONE NUMBER TO THE DAUGHTER ZEINAB PATTERSON, . THE PHONE NUMBER TO [facility] OP DEPT IS [phone]. [facility] SPOKE WITH PATIENT AND PATIENT AWARE.
[2016-12-22] MEDS ORDERED: MAG SULF 2000 MG/WATER PREMIX 50 ML IV SCH (17:00)
--- NOTE | 2016-12-22 17:15 | NUR ---
DISCUSSED DISCHARGE PLAN WITH PT, PT VERBALIZED UNDERSTANDING. CALL LIGHT WITHIN REACH. WILL CONTINUE TO MONITOR.
[2016-12-22] MEDS ORDERED: MAGNESIUM OXIDE 400 MG TAB PO SCH (17:30)
--- NOTE | 2016-12-22 17:50 | NUR ---
PT SIGNED ALL DISCHARGE PAPERWORK, NEW PRESCRIPTION GIVEN, DISCHARGE EDUCATION GIVE, FOLLOW UP INFORMATION GIVEN, PT VERBALIZED UNDERSTANDING. IV REMOVED TIP INTACT, ALL PERSONAL BELONGING WITH PT, ID BANDS REMOVED, WAITING FOR DAUGHTER TO PICK PT UP.
--- NOTE | 2016-12-22 18:15 | NUR ---
PT WAS WALKED OUT TO FRONT LOBBY, IN STABLE CONDITION.
[2016-12-23] MEDS ORDERED: ASPIRIN 81 MG TAB.CHEW PO SCH (09:00)
[2017-01-06] MEDS ORDERED: BLOOD GLUCOSE1 EACH FS (16:34)
[2017-01-06] MEDS ORDERED: NOVAPLUS ZOSYN50 M1 IV (16:34)
[2017-01-06] MEDS ORDERED: NOVAPLUS ONDA2 MG/M1 IVP (16:34)
[2017-01-06] MEDS ORDERED: CETRA VITE SENI1 TAB PO (16:34)
[2017-01-06] MEDS ORDERED: DEXTROSE 50 ML50 M3 IVP (16:34)
[2017-01-06] MEDS ORDERED: FLORASTOR 33 MG1 CAP PO (16:34)
[2017-01-06] MEDS ORDERED: IPRATROPIUM BROM3 M1 IH (16:34)
[2017-01-06] MEDS ORDERED: PEPCID20 M1 PO (16:34)
[2017-01-06] MEDS ORDERED: COLACE100 M1 PO (16:34)
== END 2016-12-22 18:15 | disposition home or self-care (01) | DRG 871 ==
LOC: MED 13:27 → MTU 16:56
PROVIDERS: ADMIT Family Medicine; ATTEND Family Medicine
DX: A41.9 Sepsis, unspecified organism (principal); J69.0 Pneumonitis due to inhalation of food and vomit; I63.9 Cerebral infarction, unspecified; E43 Unspecified severe protein-calorie malnutrition; N17.0 Acute kidney failure with tubular necrosis; D68.69 Other thrombophilia; E83.51 Hypocalcemia; E11.65 Type 2 diabetes mellitus with hyperglycemia; E11.51 Type 2 diabetes mellitus with diabetic peripheral angiopathy without gangrene; E78.5 Hyperlipidemia, unspecified; E87.6 Hypokalemia; E83.42 Hypomagnesemia; E87.8 Other disorders of electrolyte and fluid balance, not elsewhere classified; E83.39 Other disorders of phosphorus metabolism; E11.22 Type 2 diabetes mellitus with diabetic chronic kidney disease; I12.9 Hypertensive chronic kidney disease with stage 1 through stage 4 chronic kidney disease, or unspecified chronic kidney disease; N18.9 Chronic kidney disease, unspecified; R13.11 Dysphagia, oral phase; I69.320 Aphasia following cerebral infarction; Z68.25 Body mass index [BMI] 25.0-25.9, adult; I69.391 Dysphagia following cerebral infarction; I69.322 Dysarthria following cerebral infarction; Z87.891 Personal history of nicotine dependence